=== PATIENT | female | born 1980 | race American Indian/Alaskan Native ===

== ENCOUNTER 2018-12-18 22:10 | Emergency (ER) | payer OTHER ==
[2018-12-18 22:33] VITALS: BP 107/62
--- NOTE | 2018-12-18 22:38 | Emergency Department Report ---
Blank Doc - Documentation Documentation: 38 y/o female with hx/o asthma comes in for cough, sob and chest pain. Last t reatment of albuterol was about 1 hour ago. Admits to fever, chills, productive cough, LMP 12/01/18
[2018-12-18] MEDS ORDERED: DECADRON PO ONE (22:39)
[2018-12-18] MEDS ORDERED: DUONEB *Not for PRN Use IH ONE (22:48)
[2018-12-18] MEDS ORDERED: SOLU-Medrol IM ONE (23:43)
[2018-12-18] MEDS ORDERED: TORADOL IM ONE (23:43)
[2018-12-18] MEDS ORDERED: TESSALON PERLES PO ONE ×2 (23:52→23:58)
--- NOTE | 2018-12-19 00:16 | Emergency Department Report ---
- General Chief Complaint: Chest Pain Stated Complaint: SOB CHEST PAIN Time Seen by Provider: 12/18/18 22:33 Source: patient Mode of arrival: Ambulatory Limitations: No Limitations - History of Present Illness Initial Comments: The patient is a 38-year-old Citizen Of [place] female with a history of asthma and really gets asthma attacks presents to the ED with complaint of acute onset persistent nasal and sinus congestion, frontal sinus pressure, sore throat, diffuse body aches and pains, pleuritic chest pain, persistent wheezing and shortness of breath with chest tightness for the last 2 days. The patient denies fever, chills, nausea, vomiting, dizziness, change in vision, neck pain, abdominal pain, diarrhea, dysuria, urinary frequency and urgency, or lack of appetite or syncope. MD Complaint: cough, sore throat, rhinorrhea, nasal congestion, sinus pain -: Sudden, days(s) (2) Severity: severe Severity scale (0 -10): 7 Quality: sharp, aching, other (pleuritic chest wall pain) Consistency: constant Improves With: nothing, OTC cold medicine, OTC nasal spray, cough suppressant Worsens With: nothing Context: sick contacts Associated Symptoms: headache, rhinorrhea, nasal congestion, sore throat, cough, chest pain, shortness of breath Treatments Prior to Arrival: Acetaminophen, "cold medicine" - Related Data Previous Rx's Medication Instructions Recorded Last Taken Type ALBUTEROL Inhaler(NF) [VENTOLIN 1 puff IH Q4H PRN #1 inha 12/19/18 Unknown Rx Inhaler(NF)] Azithromycin [Zithromax Z-JULIA] 250 mg PO DAILY #6 tablet 12/19/18 Unknown Rx Benzonatate [Tessalon Perles] 100 mg PO Q8HR #30 capsule 12/19/18 Unknown Rx Cetirizine HCl [ZyrTEC] 10 mg PO DAILY #30 capsule 12/19/18 Unknown Rx Ibuprofen [Motrin] 600 mg PO Q8H PRN #20 tablet 12/19/18 Unknown Rx methylPREDNISolone [Medrol] 4 mg PO DAILY #21 tab.ds.pk 12/19/18 Unknown Rx Allergies Allergy/AdvReac Type Severity Reaction Status Date / Time No Known Allergies Allergy Unverified 12/18/18 22:12 ED Review of Systems ROS: Stated complaint: SOB CHEST PAIN Other details as noted in HPI Comment: All other systems reviewed and negative Constitutional: no symptoms reported, see HPI, malaise. denies: chills, fever Eyes: as per HPI. denies: eye pain, eye discharge ENT: as per HPI, throat pain, congestion. denies: ear pain, dental pain, hearing loss Respiratory: no symptoms reported, see HPI, cough, shortness of breath, wheezing. denies: SOB with exertion, SOB at rest Cardiovascular: as per HPI, chest pain (pleuritic chest pain). denies: palpitations, dyspnea on exertion, syncope, paroxysmal nocturnal dyspnea Endocrine: no symptoms reported, see HPI. denies: excessive sweating, flushing, intolerance to cold, increased hunger, increased thirst, increased urine Gastrointestinal: as per HPI. denies: abdominal pain, nausea, vomiting, diarrhea, hematochezia Genitourinary: as per HPI. denies: urgency, dysuria, frequency Musculoskeletal: as per HPI, arthralgia, myalgia. denies: back pain, joint swelling Skin: as per HPI. denies: rash, lesions, change in color Neurological: as per HPI, headache. denies: weakness, numbness, paresthesias, abnormal gait Psychiatric: as per HPI Hematological/Lymphatic: as per HPI ED Past Medical Hx - Past Medical History Previous Medical History?: Yes Hx Asthma: Yes - Surgical History Past Surgical History?: Yes Additional Surgical History: c-sect x4. R ovary removal. abd sx - Social History Smoking Status: Never Smoker Substance Use Type: None - Medications Home Medications: Home Medications Medication Instructions Recorded Confirmed Last Taken Type ALBUTEROL Inhaler(NF) [VENTOLIN 1 puff IH Q4H PRN #1 inha 12/19/18 Unknown Rx Inhaler(NF)] Azithromycin [Zithromax Z-JULIA] 250 mg PO DAILY #6 tablet 12/19/18 Unknown Rx Benzonatate [Tessalon Perles] 100 mg PO Q8HR #30 capsule 12/19/18 Unknown Rx Cetirizine HCl [ZyrTEC] 10 mg PO DAILY #30 capsule 12/19/18 Unknown Rx Ibuprofen [Motrin] 600 mg PO Q8H PRN #20 tablet 12/19/18 Unknown Rx methylPREDNISolone [Medrol] 4 mg PO DAILY #21 tab.ds.pk 12/19/18 Unknown Rx ED Physical Exam - General Limitations: No Limitations General appearance: alert, in no apparent distress - Head Head exam: Present: atraumatic, normocephalic, normal inspection - Eye Eye exam: Present: normal appearance, PERRL Pupils: Present: normal accommodation - ENT ENT exam: Present: normal exam, normal orophraynx, mucous membranes moist, TM's normal bilaterally, normal external ear exam, other (palpable frontal and maxillary sinus tenderness) - Neck Neck exam: Present: normal inspection, full ROM, lymphadenopathy. Absent: tenderness - Respiratory Respiratory exam: Present: wheezes (diffuse mild coarse wheezes throughout), chest wall tenderness. Absent: respiratory distress, rales, rhonchi, accessory muscle use, decreased breath sounds, prolonged expiratory - Cardiovascular Cardiovascular Exam: Present: regular rate, normal rhythm, normal heart sounds - GI/Abdominal GI/Abdominal exam: Present: soft, normal bowel sounds. Absent: distended, tenderness, guarding - Rectal Rectal exam: Present: deferred - Extremities Exam Extremities exam: Present: normal inspection, full ROM, normal capillary refill. Absent: tenderness - Back Exam Back exam: Present: normal inspection, full ROM. Absent: CVA tenderness (R), CVA tenderness (L), muscle spasm, paraspinal tenderness - Neurological Exam Neurological exam: Present: alert, oriented X3, CN II-XII intact, normal gait, reflexes normal - Psychiatric Psychiatric exam: Present: normal affect - Skin Skin exam: Present: warm, dry, intact, normal color ED Course Vital Signs 12/18/18 12/18/18 22:31 22:48 Temperature 98.8 F 98.8 F Pulse Rate 92 H Respiratory 20 Rate Blood Pressure 107/62 O2 Sat by Pulse 100 Oximetry - Reevaluation(s) Reevaluation #1: 12/19/18 00:18 The patient received a DuoNeb treatment in the ED and on reevaluation, patient raising is resolved and patient was treated for pain and Solu-Medrol. On reevaluation, patient headache has resolved, shortness of breath and cough. Per significantly. Patient is hemodynamically stable, and was discharged home on medications and advised follow-up with her primary care physician in 3-5 days for reevaluation or return to the ED immediately if symptoms get worse. ED Medical Decision Making - Radiology Data Radiology results: image reviewed (No acute cardiopulmonary abnomralities) - Medical Decision Making The patient is alert and oriented 3 and is not in any distress with normal vital signs. Chest x-ray shows no acute pulmonary abnormalities. Patient received DuoNeb, Solu-Medrol, Pain medications in the ED. On reevaluation, patient's pain and wheezing resolved. Patient is had 1 medications are advised to follow up with her primary care physician in 3-5 days for reevaluation. Patient was advised to return to the ED immediately if symptoms get worse. - Differential Diagnosis Acute bronchitis, acute asthma exacerbation, upper respiratory infection Critical care attestation.: If time is entered above; I have spent that time in minutes in the direct care of this critically ill patient, excluding procedure time. ED Disposition Clinical Impression: Acute asthmatic bronchitis, Acute upper respiratory infection Disposition: TO HOME OR SELFCARE Is pt being admited?: No Does the pt Need Aspirin: No Condition: Stable Instructions: Acute Bronchitis (ED), Upper Respiratory Infection (ED) Additional Instructions: Take medications with food, drink plenty of fluids and follow up with your primary care physician in 3-5 days for reevaluation. Return to the ED immediately if symptoms get worse. Prescriptions: methylPREDNISolone [Medrol] 4 mg PO DAILY #21 tab.ds.pk Ibuprofen [Motrin] 600 mg PO Q8H PRN #20 tablet PRN Reason: Pain Benzonatate [Tessalon Perles] 100 mg PO Q8HR #30 capsule ALBUTEROL Inhaler(NF) [VENTOLIN Inhaler(NF)] 1 puff IH Q4H PRN #1 inha PRN Reason: Shortness Of Breath Azithromycin [Zithromax Z-JULIA] 250 mg PO DAILY #6 tablet Cetirizine HCl [ZyrTEC] 10 mg PO DAILY #30 capsule Time of Disposition: 00:22 Print Language: PERUVIAN
--- NOTE | 2018-12-19 00:50 | XRay Report ---
PROCEDURE: XR CHEST ROUTINE 2V TECHNIQUE: PA and lateral chest radiographs were obtained. HISTORY: sob,cough,chest pain COMPARISONS: None. FINDINGS: Heart: Normal. Mediastinum/Vessels: Normal. Lungs/Pleural space: Normal. Bony thorax: No acute osseous abnormality. IMPRESSION: Normal examination. This document is electronically signed by Sharad Gerardo MD., Dec 19 2018 12:48:52 AM ET
== END 2018-12-19 00:38 | disposition home or self-care (01) ==
LOC: ED 22:10
DX: J20.9 Acute bronchitis, unspecified (principal); J06.9 Acute upper respiratory infection, unspecified
CPT/HCPCS: 71046; 93005; 93010; 96372; 99283; J1885; J2930; J8540

== ENCOUNTER 2021-08-08 06:03 | Emergency (ER) | payer OTHER ==
--- NOTE | 2021-08-08 06:07 | Event Note ---
ED Screening Note ED Screening Note: Ms. Ge is a 41-year-old asthmatic with with a known history of asthma who he does not have any home medications having a flareup of her asthma exacerbation due to the cold weather and sick contacts. She reports some nausea vomiting episode fevers chills and aches. Chest tightness and wheezing since earlier this morning This initial assessment/diagnostic orders/clinical plan/treatment(s) is/are subject to change based on patients health status, clinical progression and re- assessment by fellow clinical providers in the ED. Further treatment and workup at subsequent clinical providers discretion. Patient/guardian urged not to elope from the ED as their condition may be serious if not clinically assessed and managed. Initial orders include: As per protocol
[2021-08-08] MEDS ORDERED: IPRATROPIUM 0.02% NEBU 2.5 ML IH ONE (06:08)
[2021-08-08] MEDS ORDERED: ALBUTEROL 2.5 MG/3 ML NEBU IH ONE (06:08)
[2021-08-08] MEDS ORDERED: dexAMETHasone 4 MG/ML VIAL IM ONE (06:08)
[2021-08-08] MEDS ORDERED: ACETAMINOPEN W/CODEINE 120-12MG ORAL LIQD 5 ML PO STA (06:09)
[2021-08-08] MEDS ORDERED: guaiFENesin/CODEINE 100-10MG ORAL LIQD 5 ML PO NR (08:15)
[2021-08-08] MEDS ORDERED: LIDOCAINE (4%) 40 MG/ML TOPICAL SOLN 50 ML BOTTLE TP ONE ×2 (08:18→11:26)
--- NOTE | 2021-08-08 08:20 | Emergency Department Report ---
ED Asthma HPI - General Chief Complaint: Adult Asthma Stated Complaint: ASTHMA Time Seen by Provider: 08/08/21 06:48 Source: patient Mode of arrival: Ambulatory Limitations: No Limitations - History of Present Illness Initial Comments: Patient presented with difficulty breathing and asthma attack. She had cough and congestion. Cough has been productive. There has been no vomiting. She states she just could not catch her breath. Despite the treatments, she was not getting any better. Patient had not had intubation previously. She had been admitted before. She had had no recent travel. Patient was here primarily because of the cough. She states she just could not stop coughing and catch her breath long enough. - Related Data Previous Rx's Medication Instructions Recorded Last Taken Type ALBUTEROL Inhaler(NF) [VENTOLIN 1 puff IH Q4H PRN #1 inha 12/19/18 Unknown Rx Inhaler(NF)] Azithromycin [Zithromax Z-JULIA] 250 mg PO DAILY #6 tablet 12/19/18 Unknown Rx Cetirizine HCl [ZyrTEC] 10 mg PO DAILY #30 capsule 12/19/18 Unknown Rx methylPREDNISolone [Medrol] 4 mg PO DAILY #21 tab.ds.pk 12/19/18 Unknown Rx Benzonatate [Tessalon Perles] 100 mg PO Q8HR #30 capsule 08/08/21 Unknown Rx Ibuprofen [Motrin 600 MG tab] 600 mg PO Q8H PRN #20 tablet 08/08/21 Unknown Rx guaiFENesin/CODEINE [Robitussin AC] 5 ml PO 4XD PRN #100 oral.liqd 08/08/21 Unknown Rx Allergies Allergy/AdvReac Type Severity Reaction Status Date / Time No Known Allergies Allergy Verified 08/08/21 06:20 ED Review of Systems ROS: Stated complaint: ASTHMA Other details as noted in HPI Comment: All other systems reviewed and negative Constitutional: fever (Subjective) Eyes: denies: eye pain ENT: denies: epistaxis Respiratory: see HPI Cardiovascular: denies: syncope Endocrine: denies: unexplained weight loss Gastrointestinal: denies: hematemesis Genitourinary: denies: hematuria Musculoskeletal: arthralgia, myalgia Skin: denies: rash Neurological: headache (From coughing) Hematological/Lymphatic: denies: easy bruising ED Past Medical Hx - Past Medical History Hx Asthma: Yes - Surgical History Past Surgical History?: No Additional Surgical History: c-sect x4. R ovary removal. abd sx - Family History Family history: asthma - Social History Smoking Status: Never Smoker Substance Use Type: None - Medications Home Medications: Home Medications Medication Instructions Recorded Confirmed Last Taken Type ALBUTEROL Inhaler(NF) [VENTOLIN 1 puff IH Q4H PRN #1 inha 12/19/18 Unknown Rx Inhaler(NF)] Azithromycin [Zithromax Z-JULIA] 250 mg PO DAILY #6 tablet 12/19/18 Unknown Rx Cetirizine HCl [ZyrTEC] 10 mg PO DAILY #30 capsule 12/19/18 Unknown Rx methylPREDNISolone [Medrol] 4 mg PO DAILY #21 tab.ds.pk 12/19/18 Unknown Rx Benzonatate [Tessalon Perles] 100 mg PO Q8HR #30 capsule 08/08/21 Unknown Rx Ibuprofen [Motrin 600 MG tab] 600 mg PO Q8H PRN #20 tablet 08/08/21 Unknown Rx guaiFENesin/CODEINE [Robitussin AC] 5 ml PO 4XD PRN #100 oral.liqd 08/08/21 Unknown Rx ED Physical Exam - General Limitations: No Limitations, Other (Pulse ox noted and normal) General appearance: alert, in distress (Mild), obese - Head Head exam: Present: atraumatic, normocephalic - Eye Eye exam: Present: normal appearance, EOMI - ENT ENT exam: Present: normal orophraynx, normal external ear exam - Neck Neck exam: Present: normal inspection. Absent: meningismus - Respiratory Respiratory exam: Present: respiratory distress (Mild), wheezes (Bilateral) - Cardiovascular Cardiovascular Exam: Present: regular rate, normal rhythm - GI/Abdominal GI/Abdominal exam: Present: soft. Absent: tenderness - Extremities Exam Extremities exam: Present: normal capillary refill. Absent: pedal edema - Back Exam Back exam: Absent: CVA tenderness (R), CVA tenderness (L) - Neurological Exam Neurological exam: Present: alert, oriented X3, CN II-XII intact, normal gait - Psychiatric Psychiatric exam: Present: normal affect, normal mood - Skin Skin exam: Present: warm, dry ED Course Vital Signs 08/08/21 08/08/21 08/08/21 06:05 06:32 11:07 Temperature 99.4 F Pulse Rate 91 H 75 Respiratory 29 H 20 14 Rate Blood Pressure 135/79 113/64 [Right] O2 Sat by Pulse 100 100 Oximetry - Reevaluation(s) Reevaluation #1: 08/08/21 08:19 Patient was seen at this time. She had already been seen by the [facility]. Lidocaine neb was ordered. Reevaluation #2: 08/09/21 21:29 After the lidocaine neb, patient had improved and was discharged ED Medical Decision Making - Medical Decision Making Patient presented with upper respiratory symptoms. She certainly could have coronavirus. There is no clinical evidence of pneumonia or pneumothorax. She has no immobility and this does not seem to be consistent with pulmonary embolism. Patient was treated symptomatically and referred for outpatient evaluation and treatment. She felt much better after the lidocaine neb. Critical Care Time: No Critical care attestation.: If time is entered above; I have spent that time in minutes in the direct care of this critically ill patient, excluding procedure time. ED Disposition Clinical Impression: Viral URI Asthma exacerbation Qualifiers: Asthma severity: moderate Asthma persistence: persistent Qualified Code(s): J45.41 - Moderate persistent asthma with (acute) exacerbation Disposition: 01 HOME / SELF CARE / HOMELESS Is pt being admited?: No Condition: Stable Instructions: Asthma, Adult, Viral Respiratory Infection, [facility] Additional Instructions: Push fluids. Use Tylenol for fever. Return for problems. Continue home medication. Consider outpatient coronavirus testing. Isolate at home. Follow- up with your regular doctor or the referral physician for recheck. Prescriptions: Ibuprofen [Motrin 600 MG tab] 600 mg PO Q8H PRN #20 tablet PRN Reason: Pain guaiFENesin/CODEINE [Robitussin AC] 5 ml PO 4XD PRN #100 oral.liqd PRN Reason: Cough Benzonatate [Tessalon Perles] 100 mg PO Q8HR #30 capsule Referrals: ANGELINA MCARTHUR MD [Primary Care Provider] - 3-5 Days KANDICE ARMAS MD [Staff Physician] - 3-5 Days
[2021-08-08 11:09] VITALS: BP 113/64
== END 2021-08-08 11:58 | disposition home or self-care (01) ==
LOC: ED 06:03
DX: J06.9 Acute upper respiratory infection, unspecified (principal); J45.901 Unspecified asthma with (acute) exacerbation
CPT/HCPCS: 94640; 96372; 99283; J1100

== ENCOUNTER 2021-11-08 15:23 | Outpatient (CLI) | payer OTHER ==
--- NOTE | 2021-11-08 15:58 | XRay Report ---
CHEST 2 VIEWS INDICATION: J45.41 MODERATE PERSISTENT ASTHMA W/EXACERBATION, CHEST TIGHTNESS. COMPARISON: 12/18/2018 FINDINGS: Support devices: None. Heart: Within normal limits. Lungs/pleura: No acute air space or interstitial disease. No pneumothorax. Additional findings: None. IMPRESSION: No acute findings. Signer Name: Fausto Ghotra Jr, MD Signed: 11/08/2021 3:51 PM Workstation Name: [id number]
== END 2021-11-08 15:24 | disposition home or self-care (01) ==
LOC: XRAY 15:23
PROVIDERS: ATTEND Internal Medicine
DX: J45.909 Unspecified asthma, uncomplicated (principal)
CPT/HCPCS: 71046